=== PATIENT | male | born 1970 | race Hispanic/Latino ===

== ENCOUNTER 2023-01-28 11:38 | Inpatient (IN) | payer OTHER ==
[2023-01-28] VITALS (18 sets, daily range): BP systolic 99–136; BP diastolic 60–83; PULSE 80–97; RESP 13–18; O2SAT 96
[~2023-01-28] VITALS: Ht 172.7 cm; Wt 103.4 kg
[2023-01-28] MEDS ORDERED: TETANUS/DIPHTHERIA TOXOID [ADULT] 0.5 ML VIAL IM ONE (14:00)
[2023-01-28] MEDS ORDERED: MORPHINE 4 MG SYG IVP ONE ×2 (14:00→15:30)
[2023-01-28] MEDS ORDERED: ONDANSETRON 4MG INJ IVP ONE (14:00)
[2023-01-28] MEDS ORDERED: ZOSYN 3.375GM +NS 50ML IVPB ONE (14:00)
[2023-01-28] MEDS ORDERED: NIFEDIPINE ER 30 MG TAB PO SCH (15:30)
[2023-01-28] MEDS ORDERED: 0.9%NACL 1000ML 1,000 ML IV ONE (16:00)
[2023-01-28 16:09] LABS: BASOPHILS % (AUTO) 0.7 % (0.0-5.0); EOSINOPHILS % (AUTO) 0.4 % (0.0-8.0); HEMATOCRIT 45.9 % (42-54); LYMPHOCYTES % (AUTO) 28.2 % (21.0-51.0); MEAN CORPUSCULAR HEMOGLOBIN 29.6 pg (27.0-33.0); MEAN CORPUSCULAR HGB CONC 33.6 g/dL (32.0-36.0); MEAN CORPUSCULAR VOLUME 88.3 fL (79-99); MONOCYTES % (AUTO) 3.9 % (3.0-13.0); NEUTROPHILS % (AUTO) 66.5 % (40.0-77.0); PLATELET COUNT (AUTO) 215 K/uL (130-400); RED CELL DISTRIBUTION WIDTH 13.8 % (11.0-15.5); WHITE BLOOD COUNT (AUTO) 9.5 K/uL (4.8-10.8)
[2023-01-28 16:19] LABS: INR 0.93 (0.85-1.15); PROTHROMBIN TIME 10.4 SEC (9.6-11.6)
[2023-01-28 16:20] LABS: CREATININE 1.2 mg/dL (0.5-1.5); POTASSIUM 3.7 mmol/L (3.5-5.1)
[2023-01-28 16:21] LABS: PARTIAL THROMBOPLASTIN TIME 27.8 SEC (26.3-35.5)
[2023-01-28 16:25] LABS: ALBUMIN 3.8 g/dL (3.5-5.0); TOTAL PROTEIN, SERUM 7.7 g/dL (6.0-8.3)
[2023-01-28] MEDS ORDERED: MORPHINE 2 MG SYG IVP PRN (17:00)
[2023-01-28] MEDS ORDERED: HYDRALAZINE 20MG/ML VIAL IV PRN (17:00)
[2023-01-28] MEDS ORDERED: LACTATED RINGERS 1000ML 1,000 ML IV SCH (17:00)
[2023-01-28] MEDS: CEFEPIME HCL 2 GM VIAL IVPB SCH (17:50)
[2023-01-28] MEDS ORDERED: ROPIVACAINE 0.5% 5MG/ML 30ML IJ ONE (18:55)
[2023-01-28] MEDS ORDERED: MIDAZOLAM HCL 1 MG/ML 5ML VIAL ONE (18:55)
[2023-01-28] MEDS ORDERED: FENTANYL CITRATE PF 50 MCG/1 ML 2ML VIAL ONE ×2 (18:57→19:36)
[2023-01-28] MEDS ORDERED: DiphenhydrAMINE HCL 50 MG/ML VIAL ONE (19:16)
[2023-01-28] MEDS ORDERED: MIDAZOLAM HCL 1 MG/ML 2ML VIAL ONE ×2 (19:16→19:48)
[2023-01-28] MEDS ORDERED: ONDANSETRON 4MG INJ ONE (19:16)
[2023-01-28] MEDS ORDERED: PROPOFOL 10 MG/ML 20ML VIAL IV ONE (19:37)
[2023-01-28] MEDS ORDERED: KETOROLAC 30MG VIAL (30MG/ML) ONE (19:56)
[2023-01-28] MEDS: FAMOTIDINE 20MG VIAL IV SCH (21:00)
[2023-01-28] MEDS ORDERED: HYDROCODONE/ACETAMINOPHEN 5/325 MG TAB PO PRN (22:00)
[2023-01-29] VITALS (12 sets, daily range): BP systolic 106–190; BP diastolic 51–97; PULSE 52–85; RESP 18; O2SAT 96
[2023-01-29] MEDS: CEFEPIME HCL 2 GM VIAL IVPB SCH (04:25)
[2023-01-29 05:53] LABS: HEMATOCRIT 44.3 % (42-54); MEAN CORPUSCULAR HEMOGLOBIN 30.1 pg (27.0-33.0); MEAN CORPUSCULAR HGB CONC 33.4 g/dL (32.0-36.0); RED BLOOD CELL COUNT(AUTO) 4.92 MIL/uL (4.50-6.20); WHITE BLOOD COUNT (AUTO) 7.3 K/uL (4.8-10.8)
[2023-01-29 06:21] LABS: CREATININE 1.1 mg/dL (0.5-1.5); POTASSIUM 3.4 mmol/L (3.5-5.1)
[2023-01-29] MEDS: FAMOTIDINE 20MG VIAL IV SCH (09:34)
[2023-01-29] MEDS ORDERED: KCL 20 MEQ ERTAB PO ONE (10:00)
[2023-01-29] MEDS ORDERED: ACET-2079 PO (12:12)
[2023-01-29] MEDS ORDERED: LEVO-70 PO (12:16)
[2023-01-29] MEDS ORDERED: AMLO5TAB4 PO (12:16)
[2023-01-29] MEDS ORDERED: DOCU240C25 PO (14:39)
[2023-01-29] MEDS ORDERED: TRAM50TA4 PO (14:39)
== END 2023-01-29 15:18 | disposition home or self-care (01) | DRG 514 ==
LOC: EDH 11:45 → EDHIP 11:46 → 4CH 21:00
PROVIDERS: ADMIT Hospitalist; ATTEND Hospitalist
PROC: 0PBT0ZZ Excision of Right Finger Phalanx, Open Approach (ICD-10-PCS; principal; 2023-01-28)
PROC: 0PST04Z Reposition Right Finger Phalanx with Internal Fixation Device, Open Approach (ICD-10-PCS; 2023-01-28)
DX: S62.626B Displaced fracture of middle phalanx of right little finger, initial encounter for open fracture (principal); I10 Essential (primary) hypertension; F17.210 Nicotine dependence, cigarettes, uncomplicated; W18.39XA Other fall on same level, initial encounter; Y93.89 Activity, other specified; Y92.89 Other specified places as the place of occurrence of the external cause; Y99.8 Other external cause status
CPT/HCPCS: 36415; 73130; 73140; 80048; 80053; 83690; 85025; 85027; 85610; 85730; 90714; 93005; G0378; J0360; J0692; J1200; J1885; J2250; J2270; J2405; J2543; J2704; J2795; J3010; J3490